=== PATIENT | female | born 1950 | race Caucasian/White ===

== ENCOUNTER 2018-06-29 00:23 | Emergency (ER) | payer BC ==
[2018-06-29 01:54] VITALS: TEMP 98; BMI 32.8
--- NOTE | 2018-06-29 02:13 | PDOC ---
*Physical Exam - Vital Signs Last Vital Signs Temp Pulse Resp BP Pulse Ox 98 F 86 16 177/85 H 99 06/29/18 00:23 06/29/18 00:23 06/29/18 00:23 06/29/18 00:23 06/29/18 00:23 ED Treatment Course - LABORATORY CBC & Chemistry Diagram: 06/29/18 02:56 06/29/18 02:56 Medical Decision Making - Medical Decision Making 06/29/18 02:12 Patient seen by the advanced practice provider under my direct supervision. Ancillary testing reviewed as necessary. I agree with plan as outlined by the advanced practice provider. *DC/Admit/Observation/Transfer Diagnosis at time of Disposition: UTI (urinary tract infection) - Discharge Dispostion Condition at time of disposition: Fair - Referrals - Patient Instructions - Post Discharge Activity
[2018-06-29] MEDS ORDERED: ONDANSETRON 4 MG/2 ML VIAL IVPUSH ONE (02:16)
[2018-06-29] MEDS ORDERED: SODIUM CHLORIDE 1,000 ML IV STA (02:16)
--- NOTE | 2018-06-29 02:25 | PDOC ---
History of Present Illness - General Chief Complaint: Constipation Stated Complaint: CONSTIPATION,DRY MOUTH Time Seen by Provider: 06/29/18 02:08 History Source: Patient Exam Limitations: No Limitations - History of Present Illness Travel History: No Initial Comments: 06/29/18 02:18 HISTORY OF PRESENT ILLNESS: This 68-year-old woman past medical history of cholecystectomy presents emergency department for evaluation of constipation for 3 days. Patient reports she had had a cough for 3 weeks was given a prescription for Z-Job one week ago. Patient had finished a Z-Job has not moved her bowels in the past 3 days since finishing the prescription. Patient reports minimal oral intake. Patient was concerned that she had not a bowel movement in 3 days so she took a laxative today which caused her to have severe abdominal cramping on the left side with intermittent nausea. She denies any vomiting. Patient denies any rectal bleeding or flatus. Patient reports he usual bowel pattern is daily. No recent travel or sick contacts. PAST MEDICAL HISTORY: Denies past medical history SURGICAL HISTORY: see HPI ALLERGIES: codeine REVIEW OF SYSTEMS General/Constitutional: Denies fever or chills. Denies weakness, weight change. HEENT: Denies change in vision. Denies ear pain or discharge. Denies sore throat. Cardiovascular: Denies chest pain or shortness of breath. Respiratory: Denies cough, wheezing, or hemoptysis. Gastrointestinal: see HPI Genitourinary: Denies dysuria, frequency, or change in urination. Musculoskeletal: Denies joint or muscle swelling or pain. Denies neck or back pain. Skin and breasts: Denies rash or easy bruising. Neurologic: Denies headache, vertigo, loss of consciousness, or loss of sensation. Psychiatric: Denies depression or anxiety. Endocrine: Denies increased thirst. Denies abnormal weight change. Hematologic/Lymphatic: Denies anemia, easy bleeding, or history of blood clots. Allergic/Immunologic: Denies hives or skin allergy. Denies latex allergy. PHYSICAL EXAM General Appearance: Well-appearing, appropriately dressed. No apparent distress , no intoxication. Respiratory/Chest: Lungs CTAB. No shortness of breath, chest tenderness, respiratory distress, accessory muscle use. No crackles, rales, rhonchi, stridor , wheezing, dullness Cardiovascular: RRR. S1, S2. No JVD, murmur, bradycardia, tachycardia. Vascular Pulses: Dorsalis-Pedis (R): 2+, Dorsalis-Pedis (L): 2+ Gastrointestinal/Abdominal: Normal bowel sounds. Abdomen soft, non-distended. Left lower quadrant tenderness with guarding present. No rebound tenderness. No organomegaly, pulsatile mass, guarding, hernia, hepatomegaly, splenomegaly. Firm mobile 4 cm x 2 cm palpable mass present in the subcutaneous tissue immediately superior to umbilicus. No bowel sounds present in the mass. 06/29/18 02:18 Past History - Past Medical History Allergies/Adverse Reactions: Allergies Allergy/AdvReac Type Severity Reaction Status Date / Time No Known Allergies Allergy Verified 06/29/18 01:54 Home Medications: Ambulatory Orders Cephalexin Monohydrate [Keflex -] 500 mg PO BID #14 capsule 06/29/18 - Suicide/Smoking/Psychosocial Hx Smoking History: Never smoked Information on smoking cessation initiated: No Hx Alcohol Use: No Drug/Substance Use Hx: No *Physical Exam - Vital Signs Last Vital Signs Temp Pulse Resp BP Pulse Ox 98 F 86 16 177/85 H 99 06/29/18 00:23 06/29/18 00:23 06/29/18 00:23 06/29/18 00:23 06/29/18 00:23 ED Treatment Course - LABORATORY CBC & Chemistry Diagram: 06/29/18 02:56 06/29/18 02:56 - RADIOLOGY Radiology Studies Ordered: Category Date Time Status ABDOMEN & PELVIS CT WITH CONTR [CT] Stat CT Scan 06/29/18 02:17 Ordered Medical Decision Making - Medical Decision Making 06/29/18 02:22 A/P: 68-year-old woman left lower quadrant pain and change in bowel pattern over the past 3 days Left lower quadrant tenderness with guarding noted Firm mobile palpable masses present in the subcutaneous tissue immediately superior to her umbilicus.-Likely lipoma Differential diagnosis includes but is not limited to-bowel obstruction, bowel perforation, colitis, UTI, diverticulitis, metastatic disease, hernia Labs Urine Normal saline 1 IV Zofran 4 mg IV CTAP with PO/IV contrast Reassess 06/29/18 04:39 Laboratory testing reveals WBC of 13,500 with a left shift. Total bili slightly elevated at 2.2 with normal LFTs otherwise. Urinalysis is suggestive of infection with 2+ leuk esterase 43 wbc's. Ceftriaxone 1 g IV now CTAP pending 06/29/18 05:46 CT scan as read by imaging vp integration: 2.0 cm submucosal fibroid versus polyp versus mass and endometrial cavity. Thickening endometrial stripe complex 9 mm. Advise further evaluation with ultrasound and tissue sampling. A 0.3 x 8.3 by or 0.4 cm supraumbilical ventral hernia containing nondilated non -thickened segment of transverse colon. Oral contrast passes into descending colon. No diverticulitis or diverticulosis. No bowel obstruction, colitis, free fluid or free air. Normal appendix. Unremarkable pancreas, kidneys and gallbladder. Small hiatal hernia I'll discharge patient home with follow-up for general surgery for outpatients elective repair of hernia. Also give the patient a prescription for Keflex 500 mg twice a day for urinary tract infection. 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 I discussed the physical exam findings, ancillary test results and final diagnoses with the patient. I answered all of the patient's questions. The patient was satisfied with the care received and felt comfortable with the discharge plan and treatment plan. The patient will call their primary care physician within 24 hours to arrange follow-up and will return to the Emergency Department with any new, persistent or worsening symptoms. *DC/Admit/Observation/Transfer Diagnosis at time of Disposition: Cystitis Ventral hernia Qualifiers: Obstruction and gangrene presence: without obstruction or gangrene Qualified Code(s): K43.9 - Ventral hernia without obstruction or gangrene - Discharge Dispostion Disposition: HOME Condition at time of disposition: Fair Decision to Admit order: No - Prescriptions Prescriptions: Cephalexin Monohydrate [Keflex -] 500 mg PO BID #14 capsule - Referrals Referrals: [facility] [Provider Group] - Patient Instructions Additional Instructions: Rest, drink lots of fluids: Teas, water, soups Avoid contact with others until fevers and symptoms resolved Lots of handwashing and good hygiene Continue [id number] medications for symptomatic relief Tylenol or Motrin for fever and pain Continue all of antibiotics until completed Followup with private physician in one week for repeat urinalysis/reevaluation Call general surgeon for re-evaluation of hernia. Return to emergency department for worsened symptoms, fevers, dehydration - Post Discharge Activity
[2018-06-29 03:02] LABS: BASO % 0.2 % (0-2.0); EOS % 0.4 % (0-4.5); HEMATOCRIT 45.9 % (32.4-45.2); HEMOGLOBIN 15.1 GM/dL (10.7-15.3); LYMPH % 6.2 % (8-40); MCH 29.3 pg (25.7-33.7); MEAN CELL VOLUME 88.9 fl (80-96); MEAN PLT VOLUME 9.2 fl (7.5-11.1); MONO % 6.8 % (3.8-10.2); NEUT % 86.4 % (42.8-82.8); PLATELET COUNT 224 K/MM3 (134-434); RBC 5.17 M/mm3 (3.60-5.2); RDW 14.1 % (11.6-15.6); WHITE BLOOD COUNT 13.5 K/mm3 (4.0-10.0)
[2018-06-29] MEDS ORDERED: ONDANSETRON 4 MG/2 ML VIAL ONE (03:02)
[2018-06-29 03:21] LABS: EPI CELLS 0.9 /HPF (0-5/HPF); PH,URINE 5.5 (5.0-8.0); URINE APPEARANCE CLEAR; URINE BACTERIA 25.4 /hpf (NEGATIVE); URINE BILIRUBIN NEGATIVE (NEGATIVE); URINE CASTS 16 /lpf (0-8); URINE COLOR DK YELLOW; URINE GLUCOSE (UA) NEGATIVE (NEGATIVE); URINE KETONE 1+ (NEGATIVE); URINE LEUK ESTERASE 2+ (NEGATIVE); URINE NITRITE NEGATIVE (NEGATIVE); URINE PROTEIN NEGATIVE (NEGATIVE); URINE WBC 43 /hpf (0-5)
[2018-06-29 03:29] LABS: ALBUMIN 4.4 g/dl (3.4-5.0); BILIRUBIN,TOTAL 2.2 mg/dL (0.2-1); CALCIUM 9.5 mg/dL (8.5-10.1); CREATININE 0.8 mg/dL (0.55-1.3); POTASSIUM 4.7 mmol/L (3.5-5.1); TOT PROT 7.5 g/dl (6.4-8.2)
[2018-06-29] MEDS ORDERED: CEFTRIAXONE 1,000 MG in DEXTROSE 5%-WATER - 50 ML IVPB ONE (04:34)
[2018-06-29] MEDS ORDERED: CEFTRIAXONE 1 GM/50 ML BAG ONE (04:38)
[2018-06-29 04:51] LABS: URINE RBC 25 /hpf (0-4)
[2018-06-29 04:52] LABS: URINE CRYSTALS CA OXALATE /hpf
[2018-06-29 06:09] VITALS: BP 141/81; PULSE 70
== END 2018-06-29 06:10 | disposition home or self-care (01) ==
LOC: JER 00:23
PROC: 3E0337Z Introduction of Electrolytic and Water Balance Substance into Peripheral Vein, Percutaneous Approach (ICD-10-PCS; principal; 2018-06-29)
PROC: 3E03329 Introduction of Other Anti-infective into Peripheral Vein, Percutaneous Approach (ICD-10-PCS; 2018-06-29)
PROC: 3E033GC Introduction of Other Therapeutic Substance into Peripheral Vein, Percutaneous Approach (ICD-10-PCS; 2018-06-29)
DX: N30.00 Acute cystitis without hematuria (principal); K43.9 Ventral hernia without obstruction or gangrene
CPT/HCPCS: 36415; 74177-TC; 80053; 81003; 83690; 85025; 87086; 99282-25; J7030